=== PATIENT | female | born 1985 | race Caucasian/White ===

== ENCOUNTER 2019-06-09 10:42 | Emergency (ER) | payer MEDICAID, OTHER ==
[~2019-06-09] VITALS: Ht 157.5 cm; Wt 63.2 kg
[~2019-06-09 10:42] MED LIST: CEPH-443 PO; IBUP-1542 PO; IBUP-1561 PO; ibuprofen
[2019-06-09 10:48] VITALS: BP 145/60; PULSE 63; RESP 20; Ht 157.5 cm; Wt 63.2 kg
--- NOTE | 2019-06-09 12:10 | ERD ---
ER Documentation Chief Complaint Chief Complaint Left ankle swelling from "possible spider bite" HPI 34-year-old female presents with complaint of bite to the left ankle which occurred Den night with associated swelling. States the swelling has increased. Denies any fevers, chills, numbness, tingling, treatments. ROS All systems reviewed and are negative except as per history of present illness. Medications Home Meds Active Scripts Ibuprofen* (Motrin*) 600 Mg Tab, 600 MG PO Q6, #30 TAB Prov:DOT CUEVAS 06/09/19 Cephalexin* (Keflex*) 500 Mg Capsule, 500 MG PO QID for 7 Days, CAP Prov:DOT CUEVAS 06/09/19 Ibuprofen* (Motrin*) 400 Mg Tab, 400 MG PO Q6H PRN for PAIN, #30 TAB Prov:CONNIE DE LA ROSA PA-C 11/16/15 Reported Medications [ibuprofen] No Conflict Check 06/23/13 Allergies Allergies: Coded Allergies: piperacillin (Verified Allergy, Intermediate, RASH, 06/09/19) tazobactam (Verified Allergy, Intermediate, RASH, 06/09/19) avocado (Verified Allergy, Unknown, 01/18/15) banana (Verified Allergy, Unknown, 01/18/15) venom-honey bee (Verified Allergy, Unknown, 01/18/15) PMhx/Soc History of Surgery: No Anesthesia Reaction: No Hx Neurological Disorder: No Hx Respiratory Disorders: No Hx Cardiac Disorders: No Hx Psychiatric Problems: No Hx Miscellaneous Medical Probl: No Hx Alcohol Use: No Hx Substance Use: No Hx Tobacco Use: No FmHx Family History: No diabetes, No coronary disease, No other Physical Exam Vitals Vital Signs Date Temp Pulse Resp B/P (MAP) Pulse Ox O2 O2 Flow FiO2 Time Delivery Rate 06/09/19 98.6 63 20 145/60 99 10:48 (88) Physical Exam Const: No acute distress Head: Atraumatic Eyes: Normal Conjunctiva ENT: Normal External Ears, Nose and Mouth. Neck: Full range of motion. No meningismus. Resp: Clear to auscultation bilaterally Cardio: Regular rate and rhythm, no murmurs Abd: Soft, non tender, non distended. Normal bowel sounds Skin: No petechiae or rashes Back: No midline or flank tenderness Ext: Moderate swelling noted to the lateral aspect of left ankle with mild erythema. There is no ecchymosis, or kristin deformity noted. Overlying skin is intact. Compartments are soft and warm. There is no pallor or cyanosis. Range of motion, distal pulses, and distal sensation is intact. There is normal cap refill. Neur: Awake and alert Psych: Normal Mood and Affect Procedures/MDM MDM: Patient's presentation consistent with infection, possible early cellulitis. Patient will be treated with Keflex. Patient stated that she is taking Keflex in the past without any adverse reactions despite her penicillin allergy. Low suspicion for Kawasaki disease, scarlet fever, necrotizing fasciitis, sepsis, gangrene, Herberth-Bill syndrome, toxic epidural necrolysis, abscess, anaphylaxis, allergic reaction. at this time, patient is stable for discharge and outpatient management. I have instructed the patient to follow-up with his/her primary care physician in 1-2 days. I have discussed with the patient the possibility of needing to see a specialist for further workup and imaging studies if symptoms persist. I have instructed the patient to promptly return to the ER for any new or worsening symptoms including but not limited to increased pain, fever, nausea, vomiting, weakness or LOC. The patient and/or family expressed understanding of and agreement with this plan. All questions were answered. Home care instructions were provided. DISCLAIMER: Inadvertent spelling and grammatical errors are likely due to EHR/dictation software use and do not reflect on the overall quality of patient care. Also, please note that the electronic time recorded on this note does not necessarily reflect the actual time of the patient encounter. Departure Diagnosis: Primary Impression: Cellulitis Condition: Stable DOT CUEVAS Jun 09, 2019 12:10
== END 2019-06-09 12:28 | disposition home or self-care (01) ==
LOC: FTE 10:42
DX: L03.116 Cellulitis of left lower limb (principal)
CPT/HCPCS: 81025; Z7502; 99283